=== PATIENT | male | born 1950 | race Caucasian/White ===

== ENCOUNTER 2021-02-13 02:10 | Inpatient (IN) | payer MEDICARE, OTHER ==
[~2021-02-13] VITALS: Ht 193 cm; Wt 115.7 kg
[~2021-02-13 02:10] MED LIST: AMIODARONE HCL200 MG PO; AUGMENTIN 875-1 EACH PO; CORDARONE 200M200 MG PO; COREG 25MG TAB25 MG PO; DILANTIN100 MG PO; KEFLEX CAP 500500 MG PO; LEVAQUIN750 MG PO; NORCO 7.5-3251 EACH PO; XARELTO20 MG PO
[2021-02-13 03:04] LABS: HEMOGLOBIN 13.7 gm/dl (14.0-17.5); RED BLOOD COUNT 4.89 M/UL (4.20-5.50); WHITE BLOOD COUNT 9.2 K/UL (4.5-11.0)
[2021-02-13 03:48] LABS: BUN/CREATININE RATIO 24 (0-10)
[2021-02-13] MEDS ORDERED: LISINOPRIL10 MG PO (09:32)
[2021-02-13] MEDS ORDERED: MULTIVITAMIN1 EACH PO (09:33)
[2021-02-15 03:57] LABS: HEMOGLOBIN 12.1 gm/dl (14.0-17.5)
[2021-02-15 04:00] LABS: RED BLOOD COUNT 4.33 M/UL (4.20-5.50)
[2021-02-16 04:37] LABS: HEMOGLOBIN 12.4 gm/dl (14.0-17.5); RED BLOOD COUNT 4.44 M/UL (4.20-5.50); WHITE BLOOD COUNT 7.8 K/UL (4.5-11.0)
[2021-02-16 04:58] LABS: BUN/CREATININE RATIO 24 (0-10)
[2021-02-16] MEDS ORDERED: AMIODARONE HCL200 MG PO ×2 (13:02)
[2021-02-16] MEDS ORDERED: LASIX40 MG PO (13:02)
== END 2021-02-16 14:50 | disposition home or self-care (01) | DRG 291 ==
LOC: ER1 02:10 → PROG CARE 05:56 → CDU 05:56 → PROG CARE 14:46
PROVIDERS: Emergency Medicine; Family Medicine; Internal Medicine; Internal Medicine Interventional Cardiology; ADMIT Internal Medicine
PROC: 5A2204Z Restoration of Cardiac Rhythm, Single (ICD-10-PCS; principal; 2021-02-16)
DX: I11.0 Hypertensive heart disease with heart failure (principal); I50.43 Acute on chronic combined systolic (congestive) and diastolic (congestive) heart failure; I47.1 Supraventricular tachycardia; I48.0 Paroxysmal atrial fibrillation; E66.9 Obesity, unspecified; Z20.822 Contact with and (suspected) exposure to COVID-19; Z96.659 Presence of unspecified artificial knee joint; G40.909 Epilepsy, unspecified, not intractable, without status epilepticus; Z79.899 Other long term (current) drug therapy; Z98.890 Other specified postprocedural states; Z82.49 Family history of ischemic heart disease and other diseases of the circulatory system; Z79.01 Long term (current) use of anticoagulants; Z68.31 Body mass index [BMI] 31.0-31.9, adult
CPT/HCPCS: ECHO; 36415; 71045; 80048; 80053; 80061; 80185; 81001; 82550; 82553; 82728; 83605; 83735; 83874; 83880; 84439; 84443; 84484; 84550; 85025; 85027; 85610; 85652; 86140; 93005; 93306; 94660; 94667; 94668; 94760; 96374; 96375; 99285; J0153; J1160; J1200; J1940; J2250; J2270; U0002

== ENCOUNTER → 2021-02-28 | Outpatient (CLI) | payer MEDICARE, OTHER ==
[~2021-02-28] MED LIST changes: +LASIX40 MG PO; +LISINOPRIL10 MG PO; +MULTIVITAMIN1 EACH PO
== END ==
LOC: KOH-I 09:23
DX: R91.8 Other nonspecific abnormal finding of lung field (principal); J90 Pleural effusion, not elsewhere classified; I51.7 Cardiomegaly
CPT/HCPCS: 71250

== ENCOUNTER → 2021-06-06 | Outpatient (CLI) | payer MEDICARE, OTHER | LOC: HEART 5 07:32 | DX: R06.02 Shortness of breath (principal); Z79.899 Other long term (current) drug therapy | CPT/HCPCS: 94060; 94729 ==

== ENCOUNTER → 2021-06-09 | Outpatient (CLI) | payer MEDICARE, OTHER | LOC: HEART 5 07:44 | DX: I20.8 Other forms of angina pectoris (principal); I42.9 Cardiomyopathy, unspecified; R06.02 Shortness of breath | CPT/HCPCS: 78452; A9502; J2785 ==

== ENCOUNTER → 2021-09-14 | Outpatient (CLI) | payer MEDICARE, OTHER | LOC: ECHO 08:45 | DX: I50.9 Heart failure, unspecified (principal); I48.92 Unspecified atrial flutter; I48.91 Unspecified atrial fibrillation; I42.9 Cardiomyopathy, unspecified; R00.2 Palpitations; I34.0 Nonrheumatic mitral (valve) insufficiency | CPT/HCPCS: ECHO; 93306 ==

== ENCOUNTER → 2021-10-31 | Outpatient (CLI) | payer MEDICARE, OTHER | LOC: HEART 5 09-20 13:00 | DX: I50.22 Chronic systolic (congestive) heart failure (principal); I51.7 Cardiomegaly | CPT/HCPCS: 78472; A9560 ==

== ENCOUNTER → 2021-12-24 | Outpatient (CLI) | payer MEDICARE, OTHER ==
[2021-12-24 14:31] LABS: HEMOGLOBIN 12.9 gm/dl (14.0-17.5); RED BLOOD COUNT 4.75 M/UL (4.20-5.50)
== END ==
LOC: LAB 14:05
PROVIDERS: Internal Medicine Cardiovascular Disease
DX: I50.22 Chronic systolic (congestive) heart failure (principal); I42.0 Dilated cardiomyopathy; I45.4 Nonspecific intraventricular block
CPT/HCPCS: 71046; 80048; 85025